=== PATIENT | male | born 1935 | race Caucasian/White ===

== ENCOUNTER → 2017-02-24 17:08 | Outpatient (CLI) | payer MEDICARE ==
[2017-02-24 19:08] LABS: % SATURATION 7 % (15-55); IRON 28 ug/dl (35-150); TOTAL IRON BIND CAPACITY 376 ug/dl (260-445); UNSAT IRON BIND CAPACITY 348 ug/dl (150-375)
[2017-02-24 19:24] LABS: MAGNESIUM - SERUM 2.1 mg/dL (1.8-2.4)
== END | disposition home or self-care (01) ==
LOC: D.LABREF 17:08
PROVIDERS: Family Medicine
DX: D64.9 Anemia, unspecified (principal); I10 Essential (primary) hypertension